=== PATIENT | female | born 1945 | race Caucasian/White ===

== ENCOUNTER 2017-08-14 22:41 | Emergency (ER) | payer MEDICARE, OTHER ==
[2017-08-14] MEDS ORDERED: ONDANSETRON ODT 4 MG TABLET TL STA (23:07)
[2017-08-14] MEDS ORDERED: SODIUM CHLORIDE 0.9% 1,000 ML IV ONE (23:08)
--- NOTE | 2017-08-14 23:13 | ED Physician Documentation ---
PD HPI NVD - Stated complaint Stated Complaint: VOMITING - Chief complaint Chief Complaint: Abd Pain - History obtained from History obtained from: Patient, Family - History of Present Illness Timing - onset: Enter time (1800), Today Timing - duration: Hours Timing - details: Abrupt onset, Still present Associated symptoms: Abdominal pain, Dizzy Contributing factors: Bad food Improved by: Vomiting Similar symptoms before: Has not had sx before Recently seen: Not recently seen - Additonal information Additional information: 71-year-old female is developed acute nausea and vomiting abdominal pain this afternoon after drinking a latte today. She also indicated that she did have some cottage cheese and peaches after the latte but because she is was brand- new. She is concerned that the latte may have been bad. She has had uncontrolled vomiting for hours. Review of Systems Constitutional: reports: Myalgias, Fatigue. denies: Fever Eyes: denies: Decreased vision Ears: denies: Ear pain Nose: denies: Rhinorrhea / runny nose, Congestion Throat: denies: Sore throat Cardiac: denies: Chest pain / pressure, Palpitations Respiratory: denies: Dyspnea, Cough GI: reports: Abdominal Pain, Nausea, Vomiting. denies: Diarrhea : denies: Dysuria, Frequency Skin: denies: Rash Musculoskeletal: denies: Neck pain, Back pain, Extremity pain PD PAST MEDICAL HISTORY - Past Medical History Past Medical History: Yes Cardiovascular: Hypertension, High cholesterol Respiratory: None Neuro: None Endocrine/Autoimmune: None GI: None CABLE RESPOOLER: None : None HEENT: None Psych: None Musculoskeletal: None Derm: None - Past Surgical History Past Surgical History: Yes Ortho: Shoulder arthroplasty - Present Medications Home Medications: Ambulatory Orders Medication Instructions Recorded Confirmed Losartan [Cozaar] 50 mg PO DAILY 08/14/17 08/14/17 Propranolol [Inderal] 40 mg PO DAILY 08/14/17 08/14/17 Ondansetron Odt [Zofran] 4 mg TL Q6H PRN #10 tablet 08/15/17 - Allergies Allergies/Adverse Reactions: Allergies Allergy/AdvReac Type Severity Reaction Status Date / Time morphine Allergy Unknown Verified 08/14/17 22:53 - Social History Does the pt smoke?: No Smoking Status: Never smoker Does the pt drink ETOH?: No Does the pt have substance abuse?: No - Immunizations Immunizations are current?: Yes PD ED PE NORMAL - Vitals Vital signs reviewed: Yes (hypertensive ) - General General: Alert and oriented X 3, Well developed/nourished, Other (pattern duplicator tone and a foul mouth looks like she feels sick) - HEENT HEENT: Atraumatic, PERRL, EOMI, Other (dry mucous membranes) - Neck Neck: Supple, no meningeal sign, No bony TTP - Cardiac Cardiac: RRR, No murmur - Respiratory Respiratory: No respiratory distress, Clear bilaterally - Abdomen Abdomen: Soft, Other (mild epigastric tenderness without garding or rebound. ) - Back Back: No CVA TTP, No spinal TTP - Derm Derm: Normal color, Warm and dry, No rash - Extremities Extremities: No deformity, No edema - Neuro Neuro: No motor deficit, No sensory deficit Eye Opening: Spontaneous Motor: Obeys Commands Verbal: Oriented GCS Score: 15 - Psych Psych: Normal mood, Normal affect Results - Vitals Vitals: Vital Signs - 24 hr 08/14/17 22:51 Temperature 35.9 C L Heart Rate 94 Respiratory 18 Rate Blood Pressure 162/90 H O2 Saturation 100 Oxygen O2 Source Room air - EKG (time done) 2258 Rate: Rate (enter#) (96) Rhythm: NSR Ischemia: Q waves Compare to prior EKG: Old EKG unavailable Computer interpretation: Disagree with computer (I do not see q-wave in II. ) - Labs Labs: Laboratory Tests 08/14/17 08/14/17 08/15/17 23:20 23:20 00:35 WBC 23.8 H RBC 5.14 Hgb 14.0 Hct 42.3 MCV 82.2 MCH 27.2 MCHC 33.1 RDW 16.4 H Plt Count 271 MPV 8.0 Neut # 22.0 H Lymph # 1.2 L [place] # 0.6 Eos # 0.0 Baso # 0.0 Absolute Nucleated RBC 0.02 Nucleated RBC % 0.1 Manual Slide Review Indicated Platelet Estimate NORMAL (130-450,000) Platelet Morphology NORMAL APPEARANCE RBC Morph Micro Appear NORMAL APPEARANCE Sodium 139 Potassium 3.9 Chloride 97 L Carbon Dioxide 27 Anion Gap 15.0 H BUN 20 Creatinine 0.8 Estimated GFR (MDRD) 71 L Glucose 168 H Calcium 10.3 Total Bilirubin 0.8 AST 27 ALT 27 Alkaline Phosphatase 82 Total Protein 7.7 Albumin 4.4 Globulin 3.3 Albumin/Globulin Ratio 1.3 Lipase 17 L Urine Color YELLOW Urine Clarity CLEAR Urine pH 6.0 Ur Specific [place] >=1.030 H Urine Protein 100 H Urine Glucose (UA) NEGATIVE Urine Ketones NEGATIVE Urine Occult Blood NEGATIVE Urine Nitrite NEGATIVE Urine Bilirubin NEGATIVE Urine Urobilinogen 0.2 (NORMAL) Ur Leukocyte Esterase NEGATIVE Urine RBC 0-5 Urine WBC 0-3 Ur Squamous Epith Cells RARE Squamous Urine Bacteria Rare Urine Casts 3-5 Hyaline Casts Urine Mucus Moderate Strands Ur Microscopic Review INDICATED Urine Culture Comments NOT INDICATED Procedures - IVC sono (time) 2320 Bedside IVC sono: IVC measures (cm) (1.10), IVC collapsed c insp (cm) (complete) , Dehydration (est 1.5 liter down) PD MEDICAL DECISION MAKING - ED course Complexity details: reviewed old records, reviewed results, re-evaluated patient , considered differential, d/w patient, d/w family ED course: 71-year-old female prior history of gallbladder disease has developed acute nausea and vomiting. She has acute onset of violent vomiting and this is persisted for the past 5 hours. Shortly after arrival to the emergency department she begins to feel somewhat better. She is administered Zofran sublingual and a liter of saline is begun. She has a markedly elevated white blood cell count consistent with acute staphylococcal food poisoning. Departure - Departure Disposition: 01 Home, Self Care Clinical Impression: Food poisoning Qualifiers: Encounter type: initial encounter Injury intent: accidental or unintentional Qualified Code(s): T62.91XA - Toxic effect of unspecified noxious substance eaten as food, accidental (unintentional), initial encounter Condition: Stable Instructions: ED Gastroenteritis Vs Food Poison Follow-Up: PAUL Umana [Provider Group] Prescriptions: Ondansetron Odt [Zofran] 4 mg TL Q6H PRN #10 tablet PRN Reason: Nausea / Vomiting
[2017-08-14 23:24] LABS: BASOPHILS % (AUTO) 0.2 %; EOSINOPHILS % (AUTO) 0.2 %; HCT - HEMATOCRIT 42.3 % (37.0-47.0); LYMPHOCYTES # (AUTO) 1.2 10^3/uL (1.5-3.5); MEAN CORPUSCULAR HEMOGLOBIN 27.2 pg (27.0-31.0); MEAN CORPUSCULAR HGB CONC 33.1 g/dL (32.0-36.0); MEAN CORPUSCULAR VOLUME 82.2 fL (81.0-99.0); MONOCYTES # (AUTO) 0.6 10^3/uL (0.0-1.0); MONOCYTES % (AUTO) 2.4 %; NEUTROPHILS % (AUTO) 92.2 %; NUCLEATED RED BLOOD CELLS AUTO 0.1 /100WBC; RED BLOOD COUNT 5.14 10^6/uL (4.20-5.40); RED CELL DISTRIBUTION WIDTH 16.4 % (12.0-15.0); UNCORRECTED WHITE BLOOD COUNT 23.8 x10^3/uL; WHITE BLOOD COUNT 23.8 x10^3/uL (4.8-10.8)
[2017-08-14 23:38] LABS: ALBUMIN/GLOBULIN RATIO 1.3 (1.0-2.2); BILIRUBIN,TOTAL 0.8 mg/dL (0.2-1.0); CALCIUM 10.3 mg/dL (8.5-10.3); CREATININE 0.8 mg/dL (0.4-1.0); POTASSIUM 3.9 mmol/L (3.5-5.0); TOTAL PROTEIN 7.7 g/dL (6.7-8.2)
[2017-08-15 00:07] LABS: PLATELET ESTIMATE, MANUAL NORMAL (130-450,000) (NORMAL); PLATELET MORPHOLOGY NORMAL APPEARANCE (NORMAL)
[2017-08-15 00:42] LABS: BILIRUBIN,URINE NEGATIVE (NEGATIVE)
[2017-08-15 00:44] LABS: UA w/ MICROSCOPIC CHARGE YES
[2017-08-15 00:46] LABS: UR CULTURE IF IND NOT INDICATED; WBC,URINE 0-3 /HPF (0-5)
[2017-08-15] MEDS ORDERED: ONDANSETRON ODT 4 MG Prepack 2 TL PRN (00:51)
[2017-08-15 00:58] VITALS: BP 155/87
== END 2017-08-15 01:15 | disposition home or self-care (01) ==
LOC: ED 22:41
DX: T62.91XA Toxic effect of unspecified noxious substance eaten as food, accidental (unintentional), initial encounter (principal); I10 Essential (primary) hypertension; E78.00 Pure hypercholesterolemia, unspecified
CPT/HCPCS: 36415; 80053; 81001; 83690; 85025; 93005; 96360; 96361; 99283; Q0162; 81003; 87086

== ENCOUNTER 2019-09-08 23:55 | Outpatient (CLI) | payer MEDICARE, OTHER | END 2019-09-08 23:56 | disposition critical access hospital (66) | LOC: EMS 23:55 | PROVIDERS: ATTEND Surgery | DX: R10.30 Lower abdominal pain, unspecified (principal); M54.5 Low back pain | CPT/HCPCS: A0425; A0429 ==

== ENCOUNTER 2019-09-09 00:12 | Emergency (ER) | payer MEDICARE, OTHER ==
[2019-09-09] MEDS ORDERED: SODIUM CHLORIDE 0.9% 1,000 ML IV ONE (00:40)
[2019-09-09] MEDS ORDERED: ONDANSETRON 4 MG/2 ML VIAL IVP STA (00:40)
[2019-09-09] MEDS ORDERED: KETOROLAC 15 MG/ML VIAL IVP STA (00:40)
[2019-09-09] MEDS ORDERED: fentaNYL 100 MCG/2 ML VIAL IVP STA (00:40)
--- NOTE | 2019-09-09 00:42 | ED Physician Documentation ---
PD HPI ABD PAIN - Stated complaint Stated Complaint: ABD PAIN - Chief complaint Chief Complaint: Abd Pain - History obtained from History obtained from: Patient - History of Present Illness Timing - onset: How many hours ago (2) Timing - duration: Hours (2) Timing - details: Abrupt onset (she has had some cough for days and took Mucinex tablet. She says soon after that, had onset severe left lower abd pain to left flank. She says pain severe enough she could not walk/function and had her friend call EMS. Patient says pain started improving on its own enroute. No prior similar problems.), Still present, Now resolved (mostly resolved with just mild pain now.) Quality: Cramping, Aching, Pain Location: LLQ Radiation: Left flank Improved by: No: Eating, Position Worsened by: Moving. No: Eating, Breathing, Position, Palpation Associated symptoms: Nausea. No: Fever, Vomiting, Diarrhea, Dysuria, Hematuria, Vaginal bleeding, Vaginal dc Similar symptoms before: Has not had sx before Recently seen: Not recently seen Review of Systems Constitutional: denies: Fever, Chills, Myalgias Nose: reports: Congestion. denies: Rhinorrhea / runny nose Throat: denies: Sore throat Respiratory: reports: Cough (for several days to a week) Musculoskeletal: reports: Back pain. denies: Neck pain Neurologic: denies: Generalized weakness, Near syncope PD PAST MEDICAL HISTORY - Past Medical History Past Medical History: Yes Cardiovascular: Hypertension, High cholesterol Respiratory: None Endocrine/Autoimmune: None GI: None CARD FILER: None : None HEENT: None Psych: None Musculoskeletal: None Derm: None - Past Surgical History Past Surgical History: Yes Ortho: Shoulder arthroplasty - Present Medications Home Medications: Ambulatory Orders Medication Instructions Recorded Confirmed Losartan [Cozaar] 50 mg PO DAILY 08/14/17 09/09/19 Propranolol [Inderal] 40 mg PO DAILY 08/14/17 09/09/19 Atorvastatin [Lipitor] 10 tab PO DAILY 09/09/19 09/09/19 Benzonatate 100 mg PO Q6HR PRN 09/09/19 09/09/19 Benzonatate [Tessalon Perle] 100 - 200 mg PO TID PRN #30 capsule 09/09/19 dexAMETHasone [Decadron] 4 mg PO DAILY #5 tablet 09/09/19 - Allergies Allergies/Adverse Reactions: Allergies Allergy/AdvReac Type Severity Reaction Status Date / Time morphine Allergy Unknown Verified 09/09/19 00:24 - Social History Does the pt smoke?: No Smoking Status: Never smoker Does the pt drink ETOH?: No Does the pt have substance abuse?: No - Immunizations Immunizations are current?: Yes - POLST Patient has POLST: No PD ED PE NORMAL - Vitals Vital signs reviewed: Yes - General General: Alert and oriented X 3, No acute distress, Well developed/nourished - HEENT HEENT: Pharynx benign - Neck Neck: Supple, no meningeal sign, No adenopathy - Cardiac Cardiac: RRR, No murmur - Respiratory Respiratory: Clear bilaterally - Abdomen Abdomen: Normal bowel sounds, Soft, Non distended, No organomegaly, Other (some tender without guarding left lateral lower abd. No rash nor sores. No CVA tenderness. ) - Back Back: No CVA TTP - Derm Derm: Normal color, Warm and dry - Extremities Extremities: No tenderness to palpate, Normal ROM s pain, No edema, No calf tenderness / cord Results - Vitals Vitals: Vital Signs - 24 hr 09/09/19 09/09/19 09/09/19 00:15 00:56 01:06 Temperature 36.5 C Heart Rate 68 70 Respiratory 18 16 16 Rate Blood Pressure 185/86 H 132/113 H 148/114 H O2 Saturation 100 98 99 09/09/19 09/09/19 09/09/19 01:27 02:37 03:34 Temperature 36.2 C L Heart Rate 74 77 77 Respiratory 15 16 16 Rate Blood Pressure 166/78 H 155/77 H 142/68 H O2 Saturation 95 97 100 09/09/19 04:20 Temperature 36.7 C Heart Rate 76 Respiratory 18 Rate Blood Pressure 130/76 O2 Saturation 100 Oxygen O2 Source Room air - Labs Labs: Laboratory Tests 09/09/19 09/09/19 09/09/19 01:20 01:20 01:20 WBC 11.3 H RBC 4.59 Hgb 13.0 Hct 41.9 MCV 91.3 MCH 28.3 MCHC 31.0 L RDW 14.1 Plt Count 181 MPV 9.9 Neut # (Auto) 9.0 H Lymph # (Auto) 1.3 L [place] # (Auto) 0.8 Eos # (Auto) 0.1 Baso # (Auto) 0.0 Absolute Nucleated RBC 0.00 Nucleated RBC % 0.0 Sodium 140 Potassium 3.9 Chloride 102 Carbon Dioxide 28 Anion Gap 10.0 BUN 18 Creatinine 0.7 Estimated GFR (MDRD) 82 L Glucose 100 Lactic Acid 0.7 Calcium 9.3 Total Bilirubin 1.0 AST 31 ALT 38 Alkaline Phosphatase 65 Total Protein 6.8 Albumin 3.9 Globulin 2.9 Albumin/Globulin Ratio 1.3 Lipase 38 Urine Color Urine Clarity Urine pH Ur Specific [place] Urine Protein Urine Glucose (UA) Urine Ketones Urine Occult Blood Urine Nitrite Urine Bilirubin Urine Urobilinogen Ur Leukocyte Esterase Urine RBC Urine WBC Ur Squamous Epith Cells Urine Bacteria Ur Microscopic Review Urine Culture Comments 09/09/19 03:20 WBC RBC Hgb Hct MCV MCH MCHC RDW Plt Count MPV Neut # (Auto) Lymph # (Auto) [place] # (Auto) Eos # (Auto) Baso # (Auto) Absolute Nucleated RBC Nucleated RBC % Sodium Potassium Chloride Carbon Dioxide Anion Gap BUN Creatinine Estimated GFR (MDRD) Glucose Lactic Acid Calcium Total Bilirubin AST ALT Alkaline Phosphatase Total Protein Albumin Globulin Albumin/Globulin Ratio Lipase Urine Color YELLOW Urine Clarity CLEAR Urine pH 6.0 Ur Specific [place] 1.010 Urine Protein NEGATIVE Urine Glucose (UA) NEGATIVE Urine Ketones NEGATIVE Urine Occult Blood NEGATIVE Urine Nitrite NEGATIVE Urine Bilirubin NEGATIVE Urine Urobilinogen 0.2 (NORMAL) Ur Leukocyte Esterase SMALL H Urine RBC 0-5 Urine WBC 4-5 Ur Squamous Epith Cells MOD Squamous H Urine Bacteria Rare Ur Microscopic Review INDICATED Urine Culture Comments NOT INDICATED - Rads (name of study) abd CT Radiology: Prelim report reviewed (no ureteral stones, diverticulitis, free fluid or other acute process. Right ovarian cyst 7 cm without free fluid. Recommend U/S if concerned for torsion. However her pain was left sided, and is gone now, so I don't feel was torsion or at least not still torsed if it was. Discussed with patient and opted for f/u with CARD FILER regarding cyst generally.), See rad report PD MEDICAL DECISION MAKING - ED course Complexity details: reviewed results (7 cm ovarian cyst without free fluid. Her pain was on left abd/flank and is not hurting now after IV fluids and small dose meds. I don't think the ovarian cyst is the cause of the pain, unless had soem torsion but clinically is normal now. ), re-evaluated patient (patient without pain nor tenderness afeter fluids/meds and the CT is showing no left sided process. Right ovarian cyst seen; talked with patient about U/S here in ER to further assess the cyst versus f/u with PMD/CARD FILER for futher assessment of the cyst. She wants to go home at this point and will f/u. ), considered differential (her pain has improved enroute without meds. Only mild pain now. Consider kidney stone, diverticulitis, other cause. ), d/w patient Departure - Departure Disposition: Home, Self Care Clinical Impression: Left sided abdominal pain, Ovarian cyst, right Upper respiratory infection Qualifiers: URI type: unspecified URI Qualified Code(s): J06.9 - Acute upper respiratory infection, unspecified Condition: Stable Record reviewed to determine appropriate education?: Yes Instructions: ED Abdominal Pain Unkn Cause Follow-Up: SWAPNIL GOLDBERG MD [Primary Care Provider] - Josesito Miramontes MD [Provider Admit Priv/Credential] - Prescriptions: Benzonatate [Tessalon Perle] 100 - 200 mg PO TID PRN #30 capsule PRN Reason: Cough dexAMETHasone [Decadron] 4 mg PO DAILY #5 tablet Comments: I do not know the cause of your abdominal pain for sure. No signs of kidney stones or diverticulitis or free fluid (internal bleeding). You might have had an intestinal spasm. There is a large cyst on the right ovary which looks like a simple cyst and does not have any signs of leakage or bleeding. This does not seem like it should be related to the pain episode you had, unless it had b riefly twisted, but is definitely unusual to have a cyst postmenopausal. Follow-up with gynecology to discuss further assessment of it and whether it needs removal or such. Meanwhile stay well-hydrated and use benzonatate if needed for cough rather than the Mucinex. We can also add Decadron steroid anti-inflammatory to help with some of the bronchial irritation and therefore less cough. Use ondansetron if needed for nausea and oxycodone if needed for pain should it recur. I do not anticipate recurrence of the pain that you had. Discharge Date/Time: 09/09/19 04:28
[2019-09-09 01:27] LABS: BASOPHILS % (AUTO) 0.4 %; EOSINOPHILS # (AUTO) 0.1 10^3/uL (0.0-0.7); EOSINOPHILS % (AUTO) 0.9 %; LYMPHOCYTES # (AUTO) 1.3 10^3/uL (1.5-3.5); LYMPHOCYTES % (AUTO) 11.3 %; MEAN CORPUSCULAR HEMOGLOBIN 28.3 pg (27.0-31.0); MEAN CORPUSCULAR VOLUME 91.3 fL (81.0-99.0); MEAN PLATELET VOLUME 9.9 fL (7.9-10.8); MONOCYTES # (AUTO) 0.8 10^3/uL (0.0-1.0); MONOCYTES % (AUTO) 6.8 %; NEUTROPHILS % (AUTO) 80.2 %; PLT - PLATELET COUNT 181 10^3/uL (130-450); RED BLOOD COUNT 4.59 10^6/uL (4.20-5.40); RED CELL DISTRIBUTION WIDTH 14.1 % (12.0-15.0); WHITE BLOOD COUNT 11.3 x10^3/uL (4.8-10.8)
[2019-09-09 01:40] LABS: ALBUMIN 3.9 g/dL (3.2-5.5); ALBUMIN/GLOBULIN RATIO 1.3 (1.0-2.2); CALCIUM 9.3 mg/dL (8.5-10.3); CREATININE 0.7 mg/dL (0.4-1.0); TOTAL PROTEIN 6.8 g/dL (6.7-8.2)
--- NOTE | 2019-09-09 02:53 | CT Report ---
Reason: left abd pain Procedure Date: 09/09/2019 Accession Number: [id number] / [id number] Procedure: CT - Abdomen/Pelvis WO CPT Code: Final Report FULL RESULT: EXAM: CT ABDOMEN AND PELVIS EXAM DATE:09/09/2019 02:20 AM CLINICAL HISTORY: Left abd pain. COMPARISONS: None. TECHNIQUE: Routine helical CT imaging was performed through the abdomen and pelvis without IV contrast or oral contrast. Reconstructions: Coronal and sagittal. In accordance with CT protocol optimization, one or more of the following dose reduction techniques were utilized for this exam: automated exposure control, adjustment of mA and/or KV based on patient size, or use of iterative reconstructive technique. FINDINGS: Lung Bases: Unremarkable. Liver: Unremarkable. Calcified granulomas. Gallbladder/Bile Ducts: Status post cholecystectomy. No bile duct dilatation. Spleen: Unremarkable. Calcified granulomas. Pancreas: Unremarkable. Adrenal Glands: Unremarkable. Low-density 12 mm left adrenal nodule, likely reflects an adenoma. Kidneys: Unremarkable. Peritoneal Cavity/Bowel: Colonic diverticula. Otherwise, the bowel is normal in contour and caliber. Pelvic Organs: 7.4 cm cyst at the right adnexa. Otherwise, unremarkable. Vasculature: Unremarkable. Bones: Unremarkable. Other: None. IMPRESSION: 7.4 cm right ovarian cyst. If the patient is currently having pelvic symptoms/signs, then a pelvic ultrasound is recommended to evaluate for ovarian torsion. Otherwise, a follow-up ultrasound in 2-3 months is recommended for further characterization. No finding of obstructive uropathy/obstructing urinary stone. Colonic diverticulosis. Status post cholecystectomy. Sequela of prior granulomatous disease exposure with calcified liver and splenic granulomas. RADIA
[2019-09-09 03:43] LABS: BILIRUBIN,URINE NEGATIVE (NEGATIVE); GLUCOSE, URINE (UA) NEGATIVE (NEGATIVE); KETONES,URINE (UA) NEGATIVE (NEGATIVE); LEUKOCYTE ESTERASE, URINE SMALL (NEGATIVE); NITRITE,URINE NEGATIVE (NEGATIVE); OCCULT BLOOD,URINE NEGATIVE (NEGATIVE); PROTEIN,URINE NEGATIVE (NEGATIVE); UROBILINOGEN,URINE 0.2 (NORMAL) E.U./dL (NORMAL)
[2019-09-09 03:52] LABS: CLARITY,URINE CLEAR (CLEAR)
[2019-09-09 03:53] LABS: BACTERIA,URINE Rare /HPF (None Seen); RBC,URINE 0-5 /HPF (0-5); SQUAMOUS EPITHELIAL CELL,UR MOD Squamous (<= Few)
[2019-09-09] MEDS ORDERED: oxyCODONE/ACET 5/325 Prepack 4 PO STA (04:04)
[2019-09-09] MEDS ORDERED: ONDANSETRON ODT 4 MG Prepack 2 TL PRN (04:04)
[2019-09-09 04:30] VITALS: BP 130/76
== END 2019-09-09 04:28 | disposition home or self-care (01) ==
LOC: EDBD → EDUNIT# → ED 00:12
DX: R10.32 Left lower quadrant pain (principal); N83.201 Unspecified ovarian cyst, right side; J06.9 Acute upper respiratory infection, unspecified; I10 Essential (primary) hypertension
CPT/HCPCS: 36415; 74176; 80053; 81001; 81003; 83605; 83690; 85025; 87086; 96361; 96374; 96375; 99284

== ENCOUNTER 2020-07-26 14:20 | Outpatient (CLI) | payer MEDICARE, OTHER ==
--- NOTE | 2020-07-26 14:51 | XRAY Report ---
PROCEDURE: Toe(s) RT INDICATIONS: CONTUSION OF R 4TH TOE TECHNIQUE: Frontal view of the foot along with 2 dedicated views of the fourth and fifth digit were performed. COMPARISON: None FINDINGS: Bones: There is no displaced fracture or dislocation. Subtle periosteal new bone formation along the medial aspect of the proximal second and mid third metatarsal is noted. Soft tissues: No suspicious soft tissue densities. IMPRESSION: No acute fracture or dislocation. Mild smooth periosteal new bone formation along the second and third metatarsals suggestive of stress injury. Reviewed by: Marcus Rodriguez DO on 07/26/2020 1:50 PM [facility] Approved by: Marcus Rodriguez DO on 07/26/2020 1:50 PM PR Station ID: [id number]
== END 2020-07-26 23:59 | disposition home or self-care (01) ==
LOC: DI.N 14:20
PROVIDERS: ATTEND Physician Assistant Medical
DX: R93.6 Abnormal findings on diagnostic imaging of limbs (principal)

== ENCOUNTER 2021-06-11 08:00 | Outpatient (CLI) | payer MEDICARE, OTHER ==
--- NOTE | 2021-06-11 16:17 | XRAY Report ---
PROCEDURE: Knee 2 View LT INDICATIONS: LEFT KNEE PAIN TECHNIQUE: 3 views of the left knee(s) were acquired. COMPARISON: None. FINDINGS: Bones: No fractures or dislocations. Moderate tricompartmental osteoarthritis is seen more prominent in medial femoral tibial compartment. No suspicious bony lesions. Soft tissues: No joint effusion. No suspicious soft tissue calcifications. IMPRESSION: Moderate tricompartmental osteoarthritis. No acute left knee fracture or dislocation. No significant joint effusion. Reviewed by: Clifton Barba MD on 06/11/2021 4:16 PM PDT Approved by: Clifton Barba MD on 06/11/2021 4:16 PM PDT Station ID: [id number]
== END 2021-06-11 23:59 | disposition home or self-care (01) ==
LOC: DI.N 08:00
PROVIDERS: ATTEND Family Medicine
DX: M17.12 Unilateral primary osteoarthritis, left knee (principal)

== ENCOUNTER 2022-09-01 15:51 | Outpatient (CLI) | payer MEDICARE, OTHER ==
--- NOTE | 2022-09-02 10:28 | Ultrasound Report ---
PROCEDURE: Duplex Lwr Ext Arterial Bilat INDICATIONS: CLAUDICATION TECHNIQUE: Color and pulse Doppler interrogation was performed of both lower extremity arterial systems, with im age documentation. COMPARISON: Lower extremity claudication FINDINGS: Right lower extremity: Common femoral artery: 133 cm/sec, with triphasic flow. Deep femoral artery: 104 cm/sec, with triphasic flow. Proximal superficial femoral artery: 117 cm/sec, with triphasic flow. Mid superficial femoral artery: 117 cm/sec, with triphasic flow. Distal superficial femoral artery: 75 cm/sec, with I phasic flow. Popliteal artery: 79 cm/sec, with biphasic flow. Posterior tibial artery: 94 cm/sec, with biphasic flow. Anterior tibial artery/dorsalis pedis: 84/61 cm/sec, with I phasic flow. Fisher-scale imaging description: Mild diffuse plaque Left lower extremity: Common femoral artery: 133 cm/sec, with triphasic flow. Deep femoral artery: 128 cm/sec, with triphasic flow. Proximal superficial femoral artery: 205 cm/sec, with triphasic flow. Mid superficial femoral artery: 127 cm/sec, with triphasic flow. Distal superficial femoral artery: 96 cm/sec, with flow. Popliteal artery: 83 cm/sec, with ] flow. Posterior tibial artery: 81 cm/sec, with triphasic flow. Anterior tibial artery/dorsalis pedis: 64/99 cm/sec, with biphasic flow. Fisher-scale imaging description: Mild diffuse plaque IMPRESSION: No hemodynamically significant stenosis identified by imaging or velocity/waveform mandi lowe. Reviewed by: Griffin James on 09/02/2022 10:27 AM [facility] Approved by: Griffin James on 09/02/2022 10:27 AM PST Station ID: [id number]
== END 2022-09-01 15:52 | disposition home or self-care (01) ==
LOC: DI 15:51
PROVIDERS: ATTEND Family Medicine
DX: I73.9 Peripheral vascular disease, unspecified (principal)
CPT/HCPCS: 93925

== ENCOUNTER 2022-09-11 07:47 | Outpatient (CLI) | payer MEDICARE, OTHER | END 2022-09-11 07:48 | disposition EMS.NT | LOC: EMS 07:47 | DX: Z03.89 Encounter for observation for other suspected diseases and conditions ruled out (principal) ==

== ENCOUNTER 2022-09-13 13:16 | Outpatient (CLI) | payer MEDICARE, OTHER ==
--- NOTE | 2022-09-14 08:21 | XRAY Report ---
PROCEDURE: Hip w/Pelvis 2-3V LT INDICATIONS: PAIN IN LEFT KNEE AND HIP TECHNIQUE: AP pelvis with lateral view(s) of the left hip(s). COMPARISON: None. FINDINGS: Bones: No fractures or dislocations. Pelvic ring appears intact. No suspicious bony lesions. Mild symmetric hip and sacroiliac joint degeneration bilaterally. Soft tissues: The visualized bowel gas pattern is normal. Calcified densities adjacent to the area o f the femoral necks bilaterally are seen. IMPRESSION: 1. Mild degenerative joint disease. 2. Calcified densities are seen projecting to the area of the femoral necks bilaterally, either dystr ophic calcifications, intra-articular bodies, or calcified lymph nodes. Reviewed by: Keila Leung MD on 09/14/2022 7:20 AM [facility] Approved by: Keila Leung MD on 09/14/2022 7:20 AM [facility] Station ID: [id number]
== END 2022-09-13 13:17 | disposition home or self-care (01) ==
LOC: DI 13:16
PROVIDERS: ATTEND Family Medicine
DX: M25.562 Pain in left knee (principal); M25.552 Pain in left hip; M17.12 Unilateral primary osteoarthritis, left knee

== ENCOUNTER 2022-09-17 13:48 | Outpatient (CLI) | payer MEDICARE, OTHER ==
--- NOTE | 2022-09-19 08:19 | MRI Report ---
PROCEDURE: KNEE WO - LT INDICATIONS: KNEE PAIN TECHNIQUE: Noncontrast sagittal PD fast spin echo and T2 fast spin echo with fat saturation, sagittal 3-D gradie nt sequence with fat saturation; coronal T1 spin echo and PD fast spin echo with fat saturation, and axial PD fast spin echo with fat saturation through the knee. COMPARISON: 06/11/2021. FINDINGS: Image quality: Diagnostic. Patient motion is noted. Menisci: Peripheral displacement of medial meniscus is seen bowing medial collateral ligament. There is suggestion of complex oblique tear involving body and posterior horn of medial meniscus extending to both superior and inferior articulating surfaces. Complex tear also noted involving anterior horn and body of lateral meniscus extending to both superior and inferior articulating surfaces. Moderate grade partial-thickness tear involving posterior lateral meniscal root ligament is seen. Cruciate ligaments: The anterior and posterior cruciate ligaments appear intact. Medial structures: The medial collateral ligament appears mildly thickened near its femoral insertio n. The posterior oblique ligament, semimembranosus tendon insertions, and oblique popliteal ligament , and meniscocapsular junction appear intact. Visualized portions of the pes anserinus tendons appea r normal. No abnormal bursal fluid. Lateral structures: The lateral collateral ligament, long and short heads of the biceps femoris tend on appear intact. The popliteus tendon appears normal; the popliteofibular ligament appears intact. Iliotibial band appears normal. Anterior structures: The quadriceps and patellar tendons appear intact. Patellar alignment is kervin l. No femoral trochlear dysplasia or ventral trochlear prominence. No edema in the infrapatellar fa t pad. Bones and cartilage: Moderate tricompartmental osteoarthritis and chondromalacia is noted most notabl y in lateral femoral tibial compartment. No fracture or dislocation. Joint space: There is small to moderate knee joint fluid. There is a 2.2 x 1.9 x 6.4 cm Palafox's cyst .. Normal appearing synovial plicae are incidentally noted. IMPRESSION: 1. Complex tear involving body and posterior horn of medial meniscus extending to both superior and i nferior articulating surfaces. Complex tear also seen involving anterior horn and body of lateral men iscus extending to both superior and inferior articulating surfaces. Moderate grade partial-thickness tear involving posterior lateral meniscal root ligament. 2. Cruciate ligaments are intact. Low-grade MCL sprain. 3. Moderate tricompartmental osteoarthritis and chondromalacia most notably in lateral femoral tibial compartment. No fracture or dislocation. Moderate joint effusion and a Palafox's cyst as above. No suzy ss loose bodies. Reviewed by: Clifton Barba MD on 09/19/2022 8:18 AM PST Approved by: Clifton Barba MD on 09/19/2022 8:18 AM PST Station ID: [id number]
== END 2022-09-17 13:49 | disposition home or self-care (01) ==
LOC: DI 13:48
PROVIDERS: ATTEND Family Medicine
DX: S83.232A Complex tear of medial meniscus, current injury, left knee, initial encounter (principal); S83.272A Complex tear of lateral meniscus, current injury, left knee, initial encounter; M17.12 Unilateral primary osteoarthritis, left knee; M25.462 Effusion, left knee; M71.22 Synovial cyst of popliteal space [Baker], left knee; M94.262 Chondromalacia, left knee

== ENCOUNTER 2022-11-03 14:11 | Outpatient (CLI) | payer MEDICARE, OTHER ==
--- NOTE | 2022-11-03 18:29 | DEXA Report ---
PROCEDURE: Dexa Spine and/or Hip INDICATIONS: POST MENOPAUSAL TECHNIQUE: Dual energy x-ray absorptiometry (DXA) was performed on a [facility]. Regions measur ed are the AP Spine, femoral neck, and if needed forearm. COMPARISON: None. FINDINGS: Lumbar Spine: Bone Mineral Density 1.227 g/cm/cm,T score 0.4, normal Left Femoral Neck: Bone Mineral Density 0.678 g/cm/cm, T score -2.6, osteoporosis Left Hip: Bone Mineral Density 0.834 g/cm/cm,T score -1.4, osteopenia (T score greater or equal to -1.0: NORMAL) (T score from -1.1 to -2.4: OSTEOPENIA) (T score less than or equal to -2.5 to: OSTEOPOROSIS) Impression: Osteoporosis. Patients with diagnosis of osteoporosis or osteopenia should have regular bone mineral density assess ment. For those eligible for Medicare, routine testing is allowed once every 2 years. Testing frequ ency can be increased for patients who have rapidly progressing disease or for those who are receivin g medical therapy to restore bone mass. Reviewed by: Ramiro Núñez MD on 11/03/2022 6:27 PM PST Approved by: Ramiro Núñez MD on 11/03/2022 6:27 PM PST Station ID: [id number]
== END 2022-11-03 14:12 | disposition home or self-care (01) ==
LOC: DI 14:11
PROVIDERS: ATTEND Family Medicine
DX: M81.0 Age-related osteoporosis without current pathological fracture (principal); Z78.0 Asymptomatic menopausal state

== ENCOUNTER 2024-01-09 19:40 | Outpatient (CLI) | payer MEDICARE, OTHER | END 2024-01-09 19:41 | disposition critical access hospital (66) | LOC: EMS 19:40 | DX: R10.32 Left lower quadrant pain (principal); M79.605 Pain in left leg; R42 Dizziness and giddiness | CPT/HCPCS: A0425; A0429 ==

== ENCOUNTER 2024-01-09 19:58 | Emergency (ER) | payer MEDICARE, OTHER ==
--- NOTE | 2024-01-09 20:10 | ED Physician Documentation ---
History of Present Illness - Stated complaint Stated Complaint: LLQ/FLANK PX - Chief complaint Chief Complaint: Abd Pain - Additonal information Additional information: 78-year-old female presents to the emergency department via EMS for severe left lower quadrant pain. Patient said that she had a normal bowel movement this morning was eating dinner this evening and around 1700 started to experience severe sudden onset left lower quadrant pain. Patient said that she has had left lower quadrant pain in the past but never to the point that it has caused this much pain. She said she took some medicine at home that has helped alleviate the symptoms now but she is now feeling some generalized abdominal discomfort. 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 : None HEENT: None Psych: None Musculoskeletal: None Derm: None - Past Surgical History Past Surgical History: Yes General: Cholecystectomy Ortho: Knee replacement, Shoulder arthroplasty - Present Medications Home Medications: Ambulatory Orders Medication Instructions Recorded Confirmed Losartan [Cozaar] 50 mg PO DAILY 08/14/17 09/09/19 Propranolol [Inderal] 40 mg PO DAILY 08/14/17 09/09/19 Atorvastatin [Lipitor] 10 tab PO DAILY 09/09/19 09/09/19 Benzonatate 100 mg PO Q6HR PRN 09/09/19 09/09/19 Benzonatate [Tessalon Perle] 100 - 200 mg PO TID PRN #30 capsule 09/09/19 dexAMETHasone [Decadron] 4 mg PO DAILY #5 tablet 09/09/19 - Allergies Allergies/Adverse Reactions: Allergies Allergy/AdvReac Type Severity Reaction Status Date / Time morphine Allergy Mild Unknown Verified 01/09/24 20:05 - Social History Does the pt smoke?: No Smoking Status: Never smoker Does the pt drink ETOH?: No Does the pt have substance abuse?: No - Immunizations Immunizations are current?: Yes - POLST Patient has POLST: No PD ED PE NORMAL - Vitals Vital signs reviewed: Yes - General General: Alert and oriented X 3, No acute distress, Other (Morbid obesity) - Abdomen Abdomen: Soft, Non distended, Other (Generalized tenderness with palpation) - Back Back: No CVA TTP - Derm Derm: Normal color, Warm and dry, No rash Results - Vitals Vitals: Vital Signs - 24 hr 01/09/24 01/09/24 20:02 22:23 Temperature 36.5 C Heart Rate 82 68 Respiratory 18 18 Rate Blood Pressure 188/103 H 163/101 H O2 Saturation 96 99 Oxygen O2 Source Room air - Labs Labs: Laboratory Tests 01/09/24 01/09/24 01/09/24 20:12 20:12 21:15 WBC 11.3 H RBC 5.02 Hgb 13.3 Hct 43.2 MCV 86.1 MCH 26.5 L MCHC 30.8 L RDW 14.9 Plt Count 261 MPV 10.1 Neut # (Auto) 9.3 H Lymph # (Auto) 1.1 L [place] # (Auto) 0.7 Eos # (Auto) 0.1 Baso # (Auto) 0.0 Absolute Nucleated RBC 0.00 Nucleated RBC % 0.0 Sodium 138 Potassium 4.0 Chloride 103 Carbon Dioxide 29 Anion Gap 6.0 BUN 15 Creatinine 0.6 Estimated GFR (MDRD) 96 Glucose 113 H Calcium 9.8 Magnesium 1.8 Total Bilirubin 0.4 AST 17 ALT 20 Alkaline Phosphatase 94 Total Protein 7.1 Albumin 4.3 Globulin 2.8 Albumin/Globulin Ratio 1.5 Lipase 30 Urine Color LIGHT YELLOW Urine Clarity CLEAR Urine pH 5.5 Ur Specific [place] <=1.005 Urine Protein NEGATIVE Urine Glucose (UA) NEGATIVE Urine Ketones NEGATIVE Urine Occult Blood NEGATIVE Urine Nitrite NEGATIVE Urine Bilirubin NEGATIVE Urine Urobilinogen 0.2 (NORMAL) Ur Leukocyte Esterase NEGATIVE Ur Microscopic Review NOT INDICATED Urine Culture Comments NOT INDICATED - Rads (name of study) CT abdomen pelvis with contrast Relevant Findings:: Final report received, EMP independent interpretation of test, Other (No diverticulitis, fluid-filled loops of the small bowel left abdomen small air-fluid levels shotty mesenteric lymph nodes ovarian cyst 7.6 centimeters) PD Medical Decision Making - ED course ED course: 78-year-old female presents emergency department for left lower quadrant pain. Differentials include but not limited to diverticulitis, atypical appendicitis, ovarian torsion. CT abdomen pelvis was complete did not reveal any diverticulitis it did reveal fluid-filled loops of the small bowel in the left abdomen with small air-fluid levels. There is also found to be shotty mesenteric lymph nodes which could be due to enteritis. Of note incidentally she was found to have a large right ovarian cyst 7.6 cm which has grown in size since last CT in 2019. Labs were also complete while patient was here for further evaluation very mild leukocytosis 11.3 no anemia no electrolyte abnormalities and urinalysis is unremarkable. Patient said that she did have an episode of constipation about a week ago which she has not been most of her had resolved but there is a possibility that she still could be slightly constipated. Since she has been here her abdominal pain has fully resolved she is feeling significantly better she has had no nausea or vomiting she has not required any pain medication no Tylenol or ibuprofen as well. At this point in time I believe the patient is safe for discharge she is told to stay active going home as well as take a couple docusate and follow-up with primary care provider outpatient. She is also told incidentally about her right ovarian cyst that has grown in size since 2019 I do not believe that this is contributing to her left right right lower quadrant pain. Patient told to follow-up with her primary care provider this week and she is given strict ER return precautions. She is given 1 L of IV fluids which she said helped her left lower quadrant pain. All questions answered safe for discharge. Departure - Departure Disposition: Home, Self Care Clinical Impression: Right ovarian cyst, Dilated bowel Instructions: Abdominal Pain Comments: Thank you for trusting us with your care we have completed labs as well as CT scan and we are not seeing any acute abnormalities or findings at this time without would warrant you to be admitted to the hospital. I believe that you are experiencing dilated bowels possibly because of constipation. Make sure that you are staying very active and this helps keep your bowels moving I would encourage you to drink plenty of fluids take the docusate tonight as well as tomorrow morning to help with things getting moving again. You also were found to have a very large right ovarian cyst that has grown in size since 2020 you ne ed to follow-up with your primary care provider about this for reevaluation and further imaging. Please come back to the emergency department if you are noticing any fevers or chills worsening left lower quadrant pain or any other concerning symptoms. Wishing you a speedy recovery TECHNIQUE: After the administration of intravenous contrast, a CT scan of the abdomen and pelvis was performed. Images were recorded and evaluated at appropriate window settings. Reformats: coronal and sagittal. For radiation dose reduction, the following was used: automated exposure control, adjustment of mA and/or kV according to patient size. COMPARISON: None. FINDINGS: Image quality: Diagnostic. Lower chest: Unremarkable. Liver: No solid mass. Gallbladder: Absent. Biliary tree: No intrahepatic or extrahepatic dilation, accounting for age. Spleen: No splenomegaly. Pancreas: No pancreatic ductal dilation. Adrenals: Left adrenal nodule measuring 1.1 cm, (2/33). Kidneys and ureters: No hydronephrosis. No renal cystic lesion which requires follow up. No solid mass. Stomach, bowel and peritoneum: Stomach is within normal limits. No small bowel obstruction. Small fluid-filled loops of small bowel in the left abdomen. No pathologic free fluid. Diverticulosis. No diverticulitis. Normal appendix. Lymph nodes: Shotty mesenteric lymph nodes. Left mesenteric node measuring 1.3 cm, (2/64). Vessels: No infrarenal aortic aneurysm. Patent portal vein. PELVIS Reproductive organs: Right ovarian cyst measuring 7.6 cm, (4/78), previously remeasured 6.1 cm in 2020. Anteverted uterus. Bladder: No abnormal wall thickening, accounting for underdistention. Pelvic lymph nodes: No pelvic adenopathy by size criteria. Bones: No aggressive osseous abnormality. Multilevel DDD. Scoliosis. Other: No significant ventral or inguinal hernia. IMPRESSION: 1. No diverticulitis. No free fluid. 2. Fluid-filled loops of small bowel in the left abdomen. Small air-fluid levels. Shotty mesenteric lymph nodes. This could be seen in the setting of an enteritis. 3. Large right ovarian cyst measuring 7.6 cm is increased in size compared to 2020. Recommend gynecological consultation given its large size. This could be further evaluated with pelvic MRI with IV contrast clinically indicated. Forms: PCP List Discharge Date/Time: 01/09/24 23:21
[2024-01-09] MEDS ORDERED: iohexoL-300 100 ML VIAL ONE (20:32)
[2024-01-09 20:33] LABS: BASOPHILS % (AUTO) 0.4 %; EOSINOPHILS # (AUTO) 0.1 10^3/uL (0.0-0.7); EOSINOPHILS % (AUTO) 1.2 %; HCT - HEMATOCRIT 43.2 % (37.0-47.0); HGB - HEMOGLOBIN 13.3 g/dL (12.0-16.0); LYMPHOCYTES # (AUTO) 1.1 10^3/uL (1.5-3.5); LYMPHOCYTES % (AUTO) 9.5 %; MEAN CORPUSCULAR HEMOGLOBIN 26.5 pg (27.0-31.0); MEAN CORPUSCULAR HGB CONC 30.8 g/dL (32.0-36.0); MEAN CORPUSCULAR VOLUME 86.1 fL (81.0-99.0); MEAN PLATELET VOLUME 10.1 fL (7.9-10.8); MONOCYTES # (AUTO) 0.7 10^3/uL (0.0-1.0); MONOCYTES % (AUTO) 5.8 %; NEUTROPHILS # (AUTO) 9.3 10^3/uL (1.5-6.6); NEUTROPHILS % (AUTO) 82.7 %; PLT - PLATELET COUNT 261 10^3/uL (130-450); RED BLOOD COUNT 5.02 10^6/uL (4.20-5.40); RED CELL DISTRIBUTION WIDTH 14.9 % (12.0-15.0); WHITE BLOOD COUNT 11.3 x10^3/uL (4.8-10.8)
[2024-01-09 20:42] LABS: MAGNESIUM 1.8 mg/dL (1.7-2.3)
[2024-01-09 20:48] LABS: ALBUMIN 4.3 g/dL (3.2-5.5); ALBUMIN/GLOBULIN RATIO 1.5 (1.0-2.2); BILIRUBIN,TOTAL 0.4 mg/dL (0.2-1.0); CALCIUM 9.8 mg/dL (8.5-10.3); CREATININE 0.6 mg/dL (0.6-1.3); TOTAL PROTEIN 7.1 g/dL (6.4-8.9)
[2024-01-09 21:23] LABS: BILIRUBIN,URINE NEGATIVE (NEGATIVE); GLUCOSE, URINE (UA) NEGATIVE (NEGATIVE); KETONES,URINE (UA) NEGATIVE (NEGATIVE); LEUKOCYTE ESTERASE, URINE NEGATIVE (NEGATIVE); NITRITE,URINE NEGATIVE (NEGATIVE); OCCULT BLOOD,URINE NEGATIVE (NEGATIVE); PH,URINE 5.5 PH (5.0-7.5); PROTEIN,URINE NEGATIVE (NEGATIVE); UROBILINOGEN,URINE 0.2 (NORMAL) E.U./dL (NORMAL)
[2024-01-09 21:24] LABS: CLARITY,URINE CLEAR (CLEAR)
[2024-01-09] MEDS: iohexoL-300 100 ML VIAL IVP ONE (21:44)
[2024-01-09 22:25] VITALS: BP 163/101; O2SAT 99
--- NOTE | 2024-01-09 22:54 | CT Report ---
PROCEDURE: Abdomen/Pelvis W INDICATIONS: LLQ pain CONTRAST: Omni 300, 100mls TECHNIQUE: After the administration of intravenous contrast, a CT scan of the abdomen and pelvis was performed. Images were recorded and evaluated at appropriate window settings. Reformats: coronal and sagittal. F or radiation dose reduction, the following was used: automated exposure control, adjustment of mA and /or kV according to patient size. COMPARISON: None. FINDINGS: Image quality: Diagnostic. Lower chest: Unremarkable. Liver: No solid mass. Gallbladder: Absent. Biliary tree: No intrahepatic or extrahepatic dilation, accounting for age. Spleen: No splenomegaly. Pancreas: No pancreatic ductal dilation. Adrenals: Left adrenal nodule measuring 1.1 cm, (2/33). Kidneys and ureters: No hydronephrosis. No renal cystic lesion which requires follow up. No solid mas s. Stomach, bowel and peritoneum: Stomach is within normal limits. No small bowel obstruction. Small flu id-filled loops of small bowel in the left abdomen. No pathologic free fluid. Diverticulosis. No dive rticulitis. Normal appendix. Lymph nodes: Shotty mesenteric lymph nodes. Left mesenteric node measuring 1.3 cm, (2/64). Vessels: No infrarenal aortic aneurysm. Patent portal vein. PELVIS Reproductive organs: Right ovarian cyst measuring 7.6 cm, (4/78), previously remeasured 6.1 cm in 202 0. Anteverted uterus. Bladder: No abnormal wall thickening, accounting for underdistention. Pelvic lymph nodes: No pelvic adenopathy by size criteria. Bones: No aggressive osseous abnormality. Multilevel DDD. Scoliosis. Other: No significant ventral or inguinal hernia. IMPRESSION: 1. No diverticulitis. No free fluid. 2. Fluid-filled loops of small bowel in the left abdomen. Small air-fluid levels. Shotty mesenteric l ymph nodes. This could be seen in the setting of an enteritis. 3. Large right ovarian cyst measuring 7.6 cm is increased in size compared to 2020. Recommend gynecol ogical consultation given its large size. This could be further evaluated with pelvic MRI with IV con trast clinically indicated. Reviewed by: Jay Larson MD on 01/09/2024 10:53 PM PDT Approved by: Jay Larson MD on 01/09/2024 10:53 PM PDT Station ID: [id number]
== END 2024-01-09 23:21 | disposition home or self-care (01) ==
LOC: EDUNIT# → ED 19:58
DX: N83.201 Unspecified ovarian cyst, right side (principal); K63.89 Other specified diseases of intestine; I10 Essential (primary) hypertension; E78.00 Pure hypercholesterolemia, unspecified; Z79.899 Other long term (current) drug therapy
CPT/HCPCS: 36415; 74177; 80053; 81003; 83690; 83735; 85025; 99283; 99284; Q9967; 81001; 87086